=== PATIENT | female | born 1985 | race African-American/Black ===

== ENCOUNTER 2017-11-27 22:00 | Emergency (ER) | payer MEDICAID ==
[~2017-11-27] VITALS: Ht 152.4 cm; Wt 82.0 kg
[2017-11-27 23:16] LABS: CLARITY URINE CLEAR (CLEAR); COLOR URINE YELLOW (YELLOW); KETONES URINE NEGATIVE (NEGATIVE); LEUKOCYTE ESTERASE URINE NEGATIVE (NEGATIVE); NITRITE URINE NEGATIVE (NEGATIVE); OCCULT BLOOD URINE NEGATIVE (NEGATIVE); PH URINE 5.5 (4.5-8.0); PROTEIN URINE NEGATIVE (NEGATIVE); SPECIFIC GRAVITY URINE 1.025 (1.005-1.030)
[2017-11-28 00:42] LABS: BASOPHILS % 0.8 % (0.0-2.0); EOSINOPHILS % 0.6 % (0.0-5.0); HEMOGLOBIN. 12.1 g/dL (12.0-16.0); LYMPHOCYTES % 42.9 % (20.0-50.0); MEAN CORPUSCULAR HEMOGLOBIN 30.9 pg (28.0-32.0); MEAN CORPUSCULAR VOLUME 91.9 fL (81.0-99.0); MEAN PLATELET VOLUME 9.8 fl (7.4-10.4); MONOCYTES % 5.9 % (2.0-8.0); NEUTROPHILS % 49.8 % (40.0-76.0); PLATELET 278 x1000/uL (130-400); RED BLOOD CELL COUNT 3.92 mill/uL (4.2-5.4); RED CELL DISTRIBUTION WIDTH 12.7 % (11.6-14.6)
[2017-11-28 00:43] LABS: CHLORIDE 108 mEq/L (98-107)
[2017-11-28 00:47] LABS: PROTHROMBIN TIME 10.4 sec (9.4-11.6)
[2017-11-28 03:10] VITALS: BP 124/66
== END 2017-11-28 03:40 | disposition home or self-care (01) ==
LOC: ER 22:00
DX: R55 Syncope and collapse (principal); R53.1 Weakness; R42 Dizziness and giddiness; Z98.890 Other specified postprocedural states
CPT/HCPCS: 36415; 71045; 80053; 81003; 81025; 85025; 85610; 93005; 99285; Z7610

== ENCOUNTER 2018-10-24 21:16 | Emergency (ER) | payer MEDICAID ==
[~2018-10-24] VITALS: Ht 152.4 cm; Wt 84.0 kg
[2018-10-24] MEDS ORDERED: ACETAMINOPHEN 325MG TABLET PO ONE (23:15)
[2018-10-24] MEDS ORDERED: LEVOFLOXACIN 750MG PREMIX 150 ML IV ONE (23:15)
[2018-10-24] MEDS ORDERED: SODIUM CHLORIDE 0.9% 1000ML BAG (SEPSIS BOLUS) IV ONE (23:15)
[2018-10-24] MEDS ORDERED: ASPIRIN 81MG TABLET PO ONE (23:30)
[2018-10-24] MEDS ORDERED: NITROGLYCERIN 0.4MG TABLET SL SL PRN (23:30)
[2018-10-25 00:29] LABS: BASOPHILS % 0.4 % (0.0-2.0); HEMATOCRIT. 38.5 % (36.0-48.0); HEMOGLOBIN. 12.7 g/dL (12.0-16.0); MEAN CORPUSCULAR HEMOGLOBIN 30.7 pg (28.0-32.0); MEAN PLATELET VOLUME 9.7 fl (7.4-10.4); MONOCYTES % 11.3 % (2.0-8.0); NEUTROPHILS % 67.3 % (40.0-76.0); PLATELET 260 x1000/uL (130-400); RED BLOOD CELL COUNT 4.14 mill/uL (4.2-5.4); RED CELL DISTRIBUTION WIDTH 12.9 % (11.6-14.6)
[2018-10-25 00:36] LABS: CHLORIDE 105 mEq/L (98-107)
[2018-10-25 00:38] LABS: D-DIMER 0.68 mg/L FEU (<0.50); HCG SCREEN NEGATIVE; INR 1.1; PARTIAL THROMBOPLASTIN TIME 31.8 sec (23.4-31.0); PROTHROMBIN TIME 10.8 sec (9.1-11.1)
[2018-10-25 00:45] LABS: CLARITY URINE CLEAR (CLEAR); COLOR URINE ORANGE (YELLOW); KETONES URINE TRACE (NEGATIVE); LEUKOCYTE ESTERASE URINE 1+ (NEGATIVE); NITRITE URINE NEGATIVE (NEGATIVE); OCCULT BLOOD URINE 3+ (NEGATIVE); PH URINE 6.5 (4.5-8.0); PROTEIN URINE 2+ (NEGATIVE)
[2018-10-25 03:46] VITALS: BP 117/63
== END 2018-10-25 04:20 | disposition left against medical advice (07) ==
LOC: ER 21:16
DX: R07.89 Other chest pain (principal); N39.0 Urinary tract infection, site not specified; Z98.890 Other specified postprocedural states
CPT/HCPCS: 36415; 71045; 80053; 81003; 83605; 84145; 84484; 84703; 85025; 85379; 85610; 85730; 87040; 87086; 87804; 93005; 96365; 99284; J1956; J7030